=== PATIENT | female | born 1985 | race Caucasian/White ===

== ENCOUNTER 2016-07-14 01:04 | Inpatient (IN) | payer OTHER ==
[~2016-07-14] VITALS: Ht 165.1 cm; Wt 48.1 kg
--- NOTE | ~2016-07-14 | S ---
[facility] [address] [place] [address] SURGICAL PATH RPT PROCEDURE Name: ASHLEYMELVIN STANLEY Room #: 422-P [facility] IN M.R.#: [id number] Admission: 07/14/16 Date of : 81 Discharge: 07/19/16 Report #: [id number] Path Case #: [id number] PATHOLOGY REPORT COLLECTION DATE: 07/18/2016 RECEIVED DATE: 07/19/2016 SUBMITTING PHYS: Dr. Meghan Castañeda OTHER PHYS: Dr. Todd Mejia SPECIMEN(S) RECEIVED: A.Random bx of transverse colon B.Bx of colitis at distal transverse C.Bx of colitis at 40 cm D.Bx of colitis at 25 cm E.Bx of rectum * * * * * * * * * * * * FINAL DIAGNOSIS: A. Large intestine, transverse colon random, endoscopic biopsy: - Nonspecific changes with eosinophils within lamina propria and congestion of lamina propria vessels. - Negative for active colitis or dysplasia. B. Large intestine, colitis at distal transverse, endoscopic biopsy:- Focal mild active colitis associated with increase in eosinophils within lamina propria and congestion of lamina propria vessels (please see comment). - Negative for dysplasia. C. Large intestine, colitis at 40 cm, endoscopic biopsy: - Focal mild active colitis associated with increase in eosinophils within lamina propria and congestion of lamina propria vessels (please see comment). - Negative for dysplasia. D. Large intestine, colitis at 25 cm, endoscopic biopsy: - Mild to moderate active colitis associated with increase in eosinophils within lamina propria and congestion of lamina propria vessels (please see comment). - Negative for dysplasia. E. Large intestine, rectum, endoscopic biopsy: - Focal mild active colitis associated with increase in eosinophils within lamina propria and congestion of lamina propria vessels (please see comment). - Negative for dysplasia. COMMENT: Examination shows scattered foci of acute cryptitis in a background of increased lamina propria cellularity. The lamina propria cellularity is prominent for a few eosinophils along with lymphocytes [facility] [address] [place] [address] SURGICAL PATH RPT PROCEDURE Name: ASHELYZARIMELVINDAVID ANGEL Room #: 422-P [facility] IN M.R.#: [id number] Admission: 07/14/16 Date of : 81 Discharge: 07/19/16 Report #: [id number] Path Case #: [id number] and plasma cells. Basal plasmacytosis is not identified. Cryptitis is identified along with surface epithelial inflammation in the "colitis at 25" biopsy tissue. There are no parasites identified within the crypts or the luminal surface. There are no viral inclusions present. Overall, findings may be suggestive of an infectious colitis, acute self-limited episode of colitis, early inflammatory bowel disease, or even acute diverticulitis. Please correlate clinically including any pertinent laboratory tests as well as endoscopy findings. There is no dysplasia or malignancy present. (IUV:all; d/t: 07/19/2016) PATHOLOGIST: Antonette Levy M.D. REPORT ELECTRONICALLY SIGNED BY: Antonette Levy M.D. DATE/TIME: 07/22/2016 10:31 * * * * * * * * * * * * GROSS PATHOLOGY: A. Received in formalin labeled "GunnererMelvin and random bx of transverse colon," are 2 segments of gutierrez soft tissue measuring 0.7 x 0.2 x 0.2 cm in aggregate dimensions and measuring 0.2 and 0.5 cm in maximum dimension. The specimen is submitted entirely in cassette A1. B. Received in formalin labeled "Feenbacher Melvin and bx of colitis at distal transverse," are 2 segments of gutierrez soft tissue measuring 0.5 x 0.2 x 0.2 cm in aggregate dimensions and measuring 0.2 and 0.3 cm in maximum dimension. The specimen is submitted entirely in cassette B1. C. Received in formalin labeled "Fehrenbacher, Melvin and bx of colitis at 40 cm," are 2 segments of gutierrez soft tissue measuring 0.6 x 0.2 x 0.2 cm in aggregate dimensions and measuring 0.2 and 0.4 cm in maximum dimension. The specimen is submitted entirely in cassette C1. D. Received in formalin labeled "Fehrenbacher, Melvin and bx of colitis at 25," are 2 segments of gutierrez soft tissue measuring 0.8 x 0.2 x 0.2 cm in aggregate dimensions and measuring 0.3 and 0.5 cm in maximum dimension. The specimen is submitted entirely in cassette D1. E. Received in formalin labeled "Feenbacher, Melvin and bx of rectum," are 2 segments of gutierrez soft tissue measuring 0.9 x 0.2 x 0.2 cm in aggregate dimensions and measuring 0.4 and 0.5 cm in maximum dimension. The specimen is submitted entirely in cassette E1. (TTL; 07/19/2016) CLINICAL HISTORY: Diarrhea for one month, traveled [place] of [place] INITIAL CPT CODE(S): A; 75639 [facility] [address] [place] [address] SURGICAL PATH RPT PROCEDURE Name: MELVIN RAMIREZ Room #: 422-P [facility] IN M.R.#: [id number] Admission: 07/14/16 Date of : 81 Discharge: 07/19/16 Report #: [id number] Path Case #: [id number] B; [id number] C; [id number] D; [id number] E; [id number] Professional services performed by [facility] at [facility] [address], [place] [address] Technical services performed by [facility] at [address] [place] [address], [facility] [address] [address]. [facility] [address] [place] [address] PHONE: [phone] DIRECTOR: Merlin Rodriguez M.D. * * * END OF REPORT * * *
--- NOTE | ~2016-07-14 | P ---
[facility] [place] [address] PROCEDURE REPORT Name: ASHLEYMELVIN ANGEL Room #: 422-P ADM IN M.R.#: [id number] Admission: 07/14/16 Attend Phys: Todd Mejia MD Discharge: Date of : 81 Report #: [id number] THIS REPORT FOR: //name// CC: Todd Cortés DATE OF SERVICE: 07/18/2016 PROCEDURE: Flexible sigmoidoscopy with biopsies. The patient of Dr. Mejia. INDICATION FOR PROCEDURE: This patient has had diarrhea without hematochezia for the past month since returning home from [facility] in [facility]. She has had fevers and chills with this diarrhea. Flexible sigmoidoscopy is being done today to evaluate more completely the left colon for sources of the diarrhea because all of the stool studies thus far have been negative. Informed consent for this procedure was obtained prior to the administration of any medication. The risks of the procedure which include bleeding, perforation, infection, complications of sedation and the possibility I could miss something have been explained to the patient and she has indicated her consent by signing. Propofol 300 mg was slowly titrated before and during this procedure for patient comfort by the anesthesia service. The [place]orksn colonoscope was introduced through the anal sphincter and advanced under direct visualization to the mid transverse colon. Findings are noted on withdrawal of the scope. There are patchy areas of erythema and edema throughout the left colon and rectum, multiple biopsies were taken at varying points throughout the distal transverse, mid transverse all the way down to the rectum. Good hemostasis is noted after all of those biopsies. Retroflex view in the rectum did not reveal any other abnormalities. The scope was withdrawn. The patient went to the recovery area in stable condition. She tolerated the procedure well. IMPRESSION: Patchy mild colitis, biopsies from throughout the left colon and distal transverse colon pending. RECOMMENDATIONS: To await the biopsy results. I am going to start her on probiotics to consist of Floranex tabs 1 p.o. b.i.d. <ELECTRONICALLY SIGNED> By: Meghan Castañeda DO 07/18/16 2110 [id number] Meghan Castañeda DO /nt
--- NOTE | ~2016-07-14 | HC ---
[facility] [place] [address] CONSULTATION Name: ASHLEYMELVIN ANGEL Room #: 422-P ADM IN M.R.#: [id number] Admission: 07/14/16 Attend Phys: Todd Mejia MD Discharge: Date of : 81 Report #: [id number] THIS REPORT FOR: //name// CC: Todd Cortés DATE OF SERVICE: 07/14/2016 HISTORY OF PRESENT ILLNESS: The patient is a 31-year-old female, who went on a cruise into the [facility] including [place] and [facility], returned 06/14 and began having nausea, vomiting, diarrhea, fevers and chills. Symptoms have progressively gotten worse. She had not been evaluated until yesterday through the Emergency Room, had not been on any antibiotics recently until now in the hospital. She has lost approximately 20 pounds since that time. Prior to this was basically normal, although she did have some IBS type symptoms, but this was mostly constipation. She denies any blood in her stools. Since admission, she denies any further vomiting with Zofran. She does report some nausea. She has had 3 episodes of diarrhea today. No previous history of endoscopy. No family history of inflammatory bowel disease. She was noted to be dehydrated, have an elevated white count and hypokalemic. This is being replaced at this time. PAST MEDICAL HISTORY: Possible irritable bowel syndrome, otherwise unremarkable. ALLERGIES: No known drug allergies. FAMILY HISTORY: Negative for colon cancer or inflammatory bowel disease. REVIEW OF SYSTEMS: As per HPI. SOCIAL HISTORY: She denies any tobacco use, reports occasional alcohol use. MEDICATIONS AT HOME: None. PHYSICAL EXAMINATION: VITAL SIGNS: Temperature is 97.7, pulse 68, blood pressure 93/50 and respiratory rate is 16. GENERAL: She is alert and oriented x 3, in no acute distress. HEENT: Sclerae nonicteric. Oropharynx clear. NECK: Supple, without lymphadenopathy. CARDIOVASCULAR: Regular rate and rhythm. LUNGS: Clear to auscultation bilaterally. ABDOMEN: Soft. She is tender to palpation primarily in the lower quadrants bilaterally. Nondistended, positive bowel sounds. [address] [address] CONSULTATION Name: MELVIN RAMIREZ Room #: 422-P [facility] IN ..#: [id number] Admission: 07/14/16 Attend Phys: Todd Mejia MD Discharge: Date of : 81 Report #: [id number] EXTREMITIES: No cyanosis, clubbing or edema. LABORATORY DATA: Sodium 138, potassium 2.4, was 2.2 on admission, it is being replaced at this time. Chloride 96, bicarbonate 28, BUN 50, creatinine 1.6 and glucose 109. AST 28, total bilirubin 0.9, magnesium 2.7, alkaline phosphatase 66, ALT is 20, total protein 8.1 and albumin 4.2. WBC is 15.8, hemoglobin 16.9 and platelet count is 486. Eosinophils 6.3. C. diff is pending. HCG is negative. Stool studies for pathogen and Crypto/Giardia are pending. CT scan of the abdomen and pelvis obtained earlier this morning, possible colonic ileus versus nonspecific colitis. No other acute appearing abnormalities identified. Chest x-ray was performed and was normal. ASSESSMENT AND PLAN: 1. Nausea, vomiting, abdominal pain, diarrhea, suspect infections etiology. The patient was recently on a cruise at different countries. It has been ongoing for several weeks. She has had weight loss, significant hydration and hypokalemia. This is being replaced. She is on IV fluids as well as electrode replacement. Agree with stool studies, which are pending at this time. She has been started on Flagyl. If stool studies are negative and there is no improvement, would consider endoscopy at that point, would continue supportive care including Zofran as well. We will continue to follow. Thank you for allowing me to participate in her care. <ELECTRONICALLY SIGNED> By: Alex Key MD 07/15/16 1147 1406 0022 Alex Key MD /nt
--- NOTE | ~2016-07-14 | HC ---
[facility] [place] [address] CONSULTATION Name: MELVIN RAMIREZ Room #: 422-P ADM IN M.R.#: [id number] Admission: 07/14/16 Attend Phys: Todd Mejia MD Discharge: Date of : 81 Report #: [id number] THIS REPORT FOR: //name// CC: Todd Mejia [facility] DATE OF SERVICE: 07/14/2016 ATTENDING PHYSICIAN: Todd Mejia MD REASON FOR CONSULTATION: Chronic diarrhea after a recent trip to [facility]. HISTORY OF PRESENT ILLNESS: Chart reviewed, patient examined. This 31-year-old otherwise healthy female, perhaps has some IBS symptoms, who developed a triad of nausea, vomiting and diarrhea on the last day of a [place] cruise. They stopped at several ports of call; they got off. There was no evident arthropod exposure. She did eat meals off the ship as did her spouse who has not developed any illness. Did have initially fevers, some generalized aches; these have all resolved. Denies any new-onset eruptions, no generalized arthralgias, did have a persistent cough but primarily has been nauseated with frequent stools. On evaluation, was found to be hypokalemic, is being replaced, given some fluids. She is not encephalopathic. ALLERGIES: None known. MEDICATIONS: Include placement p.r.n. analgesics, antiemetics. PAST MEDICAL HISTORY: Previous hysterectomy, some asthma. SOCIAL HISTORY: She is , nonsmoker, no ethanol, no illicit drug use. FAMILY HISTORY: Noncontributory. REVIEW OF SYSTEMS: As above. PHYSICAL EXAMINATION: GENERAL: She appears ill, not overtly toxic, does have some paroxysms of coughing while there, undernourished consistent with a recent 20-pound weight loss. VITAL SIGNS: Temperature 97.6, pulse 86, respirations 18, blood pressure is 94/60, weight is 106 pounds. SKIN: Warm, dry, no rashes. NECK: Supple. LUNGS: Diminished breath sounds, generally clear. HEART: Regular. I do not appreciate a murmur. [facility] [address] [place] [address] CONSULTATION Name: MELVIN RAMIREZ Room #: 422-P [facility] IN [facility].#: [id number] Admission: 07/14/16 Attend Phys: Todd Mejia MD Discharge: Date of : 81 Report #: [id number] ABDOMEN: Soft. There is some tenderness in the midportion of the abdomen. There are no peritoneal signs. GENITOURINARY: Deferred. RECTAL: Deferred. LABORATORY DATA: Urinalysis: Unremarkable microscopically. Electrolytes: Sodium 138, potassium 2.2, chloride 96, bicarbonate is 28, BUN and creatinine 50 and 1.6 consistent with a prerenal azotemia, glucose of 109. Total protein 8.1, albumin of 4.2. LFTs unremarkable. Negative test. CBC: White count of 15.8, H and H 16.9, 42.8; I suspect degree of hemoconcentration, platelet count of 486. ASSESSMENT AND PLAN: Diarrheal illness. The patient had recent travel to [place] via cruise, certainly at risk for exposure. I would guess enteral will be the most likely transmission, can exclude a percutaneous. We will send stool for ova and parasites, C. diff enteric pathogens. At this time, we will check some blood cultures. CT abdomen and pelvis in progress. We will check a chest x-ray as well. Continue hydration and electrolyte replacement. <ELECTRONICALLY SIGNED> By: Efrain Zelaya MD 07/16/16 1655 [id number] Efrain Zelaya MD /nt
[2016-07-14 01:08] VITALS: BP 128/68
[2016-07-14 01:49] LABS: MONOCYTES 7.2 % (1.0-8.0)
[2016-07-14 01:50] LABS: BASOPHILS 0.4 % (0.0-2.0); EOSINOPHILS 6.3 % (0.0-3.0); HEMATOCRIT 48.2 % (37.0-47.0); HEMOGLOBIN 16.9 gm/dL (12.0-15.0); LYMPHOCYTES 35.8 % (24.0-44.0); MCH 28.4 pg (26.0-34.0); MCHC 35.1 % (28.0-37.0); MCV 80.9 fL (80.0-100.0); PLATELET COUNT 486 thou/uL (150-400); POLYS 50.3 % (36.0-66.0); RBC 5.95 mil/uL (4.20-5.00); WBC 15.8 thou/uL (4.0-11.0)
[2016-07-14 01:51] LABS: MANUAL DIFF NO
[2016-07-14 02:05] LABS: CALCIUM 9.9 mg/dL (8.5-10.1); CREATININE 1.6 mg/dL (0.6-1.3)
[2016-07-14 02:07] LABS: POTASSIUM 2.2 mmol/L (3.5-5.1)
[2016-07-14 02:11] LABS: ALBUMIN 4.2 g/dL (3.4-5.0); DIRECT BILIRUBIN 0.1 mg/dL (<0.1-0.3); TOTAL BILIRUBIN 0.9 mg/dL (<0.1-1.0); TOTAL PROTEIN 8.1 g/dL (6.4-8.2)
[2016-07-14 02:45] LABS: URINE BILIRUBIN NEGATIVE (Negative); URINE BLOOD TRACE (Negative); URINE COLOR YELLOW; URINE GLUCOSE-RANDOM* NEGATIVE (Negative); URINE KETONES NEGATIVE (Negative); URINE NITRITE NEGATIVE (Negative); URINE PROTEIN (DIPSTICK) TRACE (Negative); URINE UROBILINOGEN 0.2 E.U./dl (0.2-1.0)
[2016-07-14 09:21] VITALS: BP 93/58
[2016-07-14 16:20] VITALS: BP 99/25
[2016-07-14 20:00] VITALS: BP 104/60
[2016-07-15 02:43] LABS: HEMATOCRIT 31.3 % (37.0-47.0); MCH 28.8 pg (26.0-34.0); MCHC 34.9 % (28.0-37.0); MCV 82.7 fL (80.0-100.0); RBC 3.78 mil/uL (4.20-5.00); RDW 13.2 % (10.5-14.5); WBC 9.9 thou/uL (4.0-11.0)
[2016-07-15 02:55] LABS: CREATININE 0.9 mg/dL (0.6-1.3)
[2016-07-15 02:58] LABS: HEMOGLOBIN 10.9 gm/dL (12.0-15.0)
[2016-07-15 03:19] LABS: CALCIUM 7.6 mg/dL (8.5-10.1); POTASSIUM 2.7 mmol/L (3.5-5.1)
[2016-07-15 04:00] VITALS: BP 94/48
[2016-07-15 07:41] VITALS: BP 98/59
[2016-07-15 10:24] LABS: HEMOGLOBIN 11.1 gm/dL (12.0-15.0)
[2016-07-15 15:45] VITALS: BP 100/59
[2016-07-15 20:00] VITALS: BP 95/63
[2016-07-16 04:00] VITALS: BP 102/57
[2016-07-16 05:28] LABS: ABSOLUTE NEUTROPHILS 4.9 thou/uL (1.4-8.2); BASOPHILS 0.9 % (0.0-2.0); HEMATOCRIT 35.4 % (37.0-47.0); HEMOGLOBIN 12.2 gm/dL (12.0-15.0); LYMPHOCYTES 33.9 % (24.0-44.0); MCH 28.3 pg (26.0-34.0); MCHC 34.4 % (28.0-37.0); MCV 82.3 fL (80.0-100.0); MONOCYTES 6.6 % (1.0-8.0); PLATELET COUNT 243 thou/uL (150-400); POLYS 51.6 % (36.0-66.0); RDW 13.6 % (10.5-14.5); WBC 9.5 thou/uL (4.0-11.0)
[2016-07-16 05:41] LABS: MANUAL DIFF NO
[2016-07-16 05:56] LABS: CALCIUM 7.8 mg/dL (8.5-10.1); CREATININE 0.7 mg/dL (0.6-1.3); MAGNESIUM 1.6 mg/dL (1.8-2.4); POTASSIUM 3.5 mmol/L (3.5-5.1); TOTAL BILIRUBIN 0.5 mg/dL (<0.1-1.0)
[2016-07-16 05:57] LABS: ALBUMIN 2.6 g/dL (3.4-5.0); TOTAL PROTEIN 5.4 g/dL (6.4-8.2)
[2016-07-16 07:52] VITALS: BP 97/55
[2016-07-16 16:31] VITALS: BP 106/72
[2016-07-16 20:00] VITALS: BP 104/59
[2016-07-17 04:30] VITALS: BP 100/57
[2016-07-17 07:25] VITALS: BP 94/55
[2016-07-17 09:50] LABS: ABSOLUTE NEUTROPHILS 5.1 thou/uL (1.4-8.2); EOSINOPHILS 6.4 % (0.0-3.0); HEMATOCRIT 31.3 % (37.0-47.0); HEMOGLOBIN 11.1 gm/dL (12.0-15.0); LYMPHOCYTES 27.9 % (24.0-44.0); MCH 29.1 pg (26.0-34.0); MCHC 35.4 % (28.0-37.0); MONOCYTES 5.5 % (1.0-8.0); PLATELET COUNT 251 thou/uL (150-400); POLYS 59.2 % (36.0-66.0); RBC 3.81 mil/uL (4.20-5.00); RDW 13.6 % (10.5-14.5); WBC 8.6 thou/uL (4.0-11.0)
[2016-07-17 09:51] LABS: MANUAL DIFF NO
[2016-07-17 10:54] LABS: CALCIUM 7.1 mg/dL (8.5-10.1); CREATININE 0.7 mg/dL (0.6-1.3); MAGNESIUM 1.3 mg/dL (1.8-2.4)
[2016-07-17 11:04] LABS: POTASSIUM 2.6 mmol/L (3.5-5.1)
[2016-07-17 15:51] VITALS: BP 118/73
[2016-07-17 20:00] VITALS: BP 99/58
[2016-07-18 04:00] VITALS: BP 102/54
[2016-07-18 05:12] LABS: CALCIUM 7.8 mg/dL (8.5-10.1); CREATININE 0.7 mg/dL (0.6-1.3); MAGNESIUM 1.4 mg/dL (1.8-2.4)
[2016-07-18 08:09] VITALS: BP 98/65
[2016-07-18 15:53] VITALS: BP 120/78
[2016-07-18 20:00] VITALS: BP 98/60
[2016-07-18 20:35] LABS: MAGNESIUM 1.3 mg/dL (1.8-2.4); POTASSIUM 3.4 mmol/L (3.5-5.1)
[2016-07-19 04:00] VITALS: BP 118/62
[2016-07-19 06:49] LABS: ALBUMIN 2.7 g/dL (3.4-5.0); CALCIUM 7.9 mg/dL (8.5-10.1); CREATININE 0.7 mg/dL (0.6-1.3); MAGNESIUM 1.3 mg/dL (1.8-2.4); POTASSIUM 3.6 mmol/L (3.5-5.1); TOTAL BILIRUBIN 0.4 mg/dL (<0.1-1.0); TOTAL PROTEIN 5.3 g/dL (6.4-8.2)
[2016-07-19 07:47] VITALS: BP 104/53
[2016-07-19] MEDS ORDERED: MAGOX 400400 MG PO (12:35)
[2016-07-19] MEDS ORDERED: POTASSIUM20 PO (12:35)
[2016-07-19] MEDS ORDERED: FLORANEX PACKET1 GM PO (12:35)
[2016-07-19] MEDS ORDERED: FLAGYL500 MG PO (12:35)
[2016-07-19] MEDS ORDERED: CIPRO500 MG PO (12:35)
[2016-07-19 14:26] VITALS: BP 104/53
== END 2016-07-19 16:17 | disposition home or self-care (01) | DRG 392 ==
LOC: ER 01:04 → EROBS 04:12 → 4E 04:12
PROVIDERS: Emergency Medicine; Hospitalist; Internal Medicine; Nurse Practitioner Acute Care
PROC: 0DBL8ZX Excision of Transverse Colon, Via Natural or Artificial Opening Endoscopic, Diagnostic (ICD-10-PCS; principal; 2016-07-18)
PROC: 0DBM8ZX Excision of Descending Colon, Via Natural or Artificial Opening Endoscopic, Diagnostic (ICD-10-PCS; 2016-07-18)
PROC: 0DBP8ZX Excision of Rectum, Via Natural or Artificial Opening Endoscopic, Diagnostic (ICD-10-PCS; 2016-07-18)
DX: K52.9 Noninfective gastroenteritis and colitis, unspecified (principal); N17.9 Acute kidney failure, unspecified; F50.00 Anorexia nervosa, unspecified; F55.2 Abuse of laxatives; E83.42 Hypomagnesemia; E86.0 Dehydration; J45.909 Unspecified asthma, uncomplicated; E87.6 Hypokalemia; Z23 Encounter for immunization; Z90.710 Acquired absence of both cervix and uterus; Z79.899 Other long term (current) drug therapy; Z79.2 Long term (current) use of antibiotics
CPT/HCPCS: 10183; 62110; 62900; 70005